=== PATIENT | female | born 2000 ===

== ENCOUNTER 2018-05-15 21:33 | Emergency (ER) | payer SELFPAY ==
[2018-05-15 21:55] VITALS: BP 128/84; O2SAT 99; BMI 29.9
[2018-05-15] MEDS ORDERED: Sodium Chloride 0.9% 1,000 ML IV STA (22:13)
[2018-05-15 22:43] LABS: BASO # 0.03 K/mm3 (0.0-2.0); BASO % 0.5 % (0.0-3.0); EOS % 0.4 % (1.5-5.0); GRAN # 3.43 (1.4-6.5); GRAN % 60.3 % (50.0-68.0); HEMOGLOBIN 11.1 g/dL (12.0-16.0); LYMPH # 1.7 (1.2-3.4); LYMPH % 30.3 % (22.0-35.0); MEAN CELL VOLUME 76.2 fl (80.0-105.0); MEAN CORPUSCULAR HEMOGLOBIN 25.9 pg (25.0-35.0); MEAN PLATELET VOLUME 9.5 fl (7.0-11.0); MONO # 0.5 (0.1-0.6); MONO % 8.5 % (1.0-6.0); PH,URINE 6.5 (4.7-8.0); RBC 4.28 10^6/uL (3.5-6.1); RED CELL DISTRIBUTION WIDTH 17.3 % (11.5-14.5); URINE BILIRUBIN NEGATIVE (NEGATIVE); URINE BLOOD NEGATIVE (NEGATIVE); URINE GLUCOSE (UA) NEGATIVE (NEGATIVE); URINE LEUKOCYTE ESTERASE NEGATIVE Leu/uL (NEGATIVE); URINE PROTEIN TRACE mg/dL (<30 mg/dL); WHITE BLOOD COUNT 5.7 10^3/ul (4.5-11.0)
[2018-05-15 22:44] LABS: URINE APPEARANCE CLEAR (CLEAR); URINE COLOR YELLOW (YELLOW)
[2018-05-15 22:46] LABS: URINE RBC 0 - 2 /hpf (0-2); URINE WBC 0 - 2 /hpf (0-6)
[2018-05-15 23:00] LABS: ALB/GLOB RATIO 1.3 (1.1-1.8); ALBUMIN 4.5 g/dL (3.0-4.8); ALT/SGPT 18 U/L (7-56); AST/SGOT 22 U/L (14-36); BLOOD UREA NITROGEN 8 mg/dL (7-21); CALCIUM 9.7 mg/dL (8.4-10.5); GFR AFRICAN-AMERICAN > 60; GFR NON-AFRICAN AMERICAN > 60; LIPASE 111 U/L (23-300)
--- NOTE | 2018-05-16 00:59 | ED PDOC ---
Arrival/HPI - General Historian: Patient - History of Present Illness Time/Duration: Prior to Arrival Symptom Onset: Sudden Symptom Course: Improving Quality: Cramping Severity Level: 2 <Livia Roy - Last Filed: 05/16/18 01:44> <Freddie Harrington - Last Filed: 05/16/18 02:06> - General Chief Complaint: Abdominal Pain Time Seen by Provider: 05/15/18 21:58 - History of Present Illness Narrative History of Present Illness (Text): 05/16/18 01:26 17-year-old female presents today with abdominal cramping that started 15 minutes prior to arrival. Patient also had 2 episodes of vomiting. Patient states the nausea and vomiting has resolved. Patient states she still having lower abdominal cramping. No medications have been taken for pain at home. Patient denies fevers or chills. Patient denies urinary symptoms. Patient denies vaginal bleeding or vaginal discharge. Patient states she just found out that she was . Patient states she has had one in the past and had a miscarriage. Patient denies dizziness or weakness. Denies back pain. No other complaints (Livia Roy) Past Medical History - Provider Review Nursing Documentation Reviewed: Yes - Travel History Have you recently traveled outside [place] w/in the past 3 mons?: No - Infectious Disease Hx of Infectious Diseases: None - Reproductive Menopause: No - Psychiatric Hx Substance Use: No - Anesthesia Hx Anesthesia: No Hx Anesthesia Reactions: No Hx Malignant Hyperthermia: No <Livia Roy - Last Filed: 05/16/18 01:44> Family/Social History - Physician Review Nursing Documentation Reviewed: Yes Family/Social History: Unknown Family HX Smoking Status: Never Smoked Hx Alcohol Use: No Hx Substance Use: No <Livia Roy - Last Filed: 05/16/18 01:44> Allergies/Home Meds <Livia Roy - Last Filed: 05/16/18 01:44> <Freddie Harrington - Last Filed: 05/16/18 02:06> Allergies/Adverse Reactions: Allergies No Known Allergies Allergy (Verified 05/15/18 22:11) Review of Systems - Review of Systems Constitutional: absent: Fatigue, Fevers Respiratory: absent: SOB, Cough Cardiovascular: absent: Chest Pain, Palpitations Gastrointestinal: Abdominal Pain, Nausea, Vomiting. absent: Constipation, Diarrhea Genitourinary Female: absent: Dysuria, Frequency, Hematuria, Vaginal Bleeding, Vaginal Discharge Musculoskeletal: absent: Arthralgias, Back Pain, Neck Pain Skin: absent: Rash, Pruritis Neurological: absent: Headache, Dizziness Psychiatric: absent: Anxiety, Depression <Livia Roy - Last Filed: 05/16/18 01:44> Physical Exam Vital Signs Reviewed: Yes Temperature: Afebrile Blood Pressure: Normal Pulse: Regular Respiratory Rate: Normal Appearance: Positive for: Well-Appearing, Non-Toxic, Comfortable Pain Distress: None Mental Status: Positive for: Alert and Oriented X 3 - Systems Exam Head: Present: Atraumatic Mouth: Present: Moist Mucous Membranes Neck: Present: Normal Range of Motion Respiratory/Chest: Present: Clear to Auscultation, Good Air Exchange. No: Respiratory Distress, Accessory Muscle Use Cardiovascular: Present: Regular Rate and Rhythm, Normal S1, S2. No: Murmurs Abdomen: Present: Tenderness (minimal lower abdominal tenderness), Normal Bowel Sounds. No: Distention, Peritoneal Signs, Rebound, Guarding Genitourinary/Pelvic Exam: Present: Normal External Genitalia, Vaginal Discharge (slight white vaginal discharge), Adenexal Mass (minimal right sided adnexal tenderness), Other (chaparoned by Padmini ching). No: Vaginal Bleeding, Vaginal Lesions, Adenexal Tenderness, Cervical Motion Tendernes, Odor Back: Present: Normal Inspection. No: CVA Tenderness, Midline Tenderness, Paraspinal Tenderness Upper Extremity: Present: Normal ROM Lower Extremity: Present: Normal ROM Neurological: Present: GCS=15, Speech Normal Skin: Present: Warm, Dry, Normal Color. No: Rashes Psychiatric: Present: Alert, Oriented x 3 <Livia Roy - Last Filed: 05/16/18 01:44> Vital Signs Temp Pulse Resp BP Pulse Ox 05/16/18 01:49 97.8 F 78 16 128/84 99 05/15/18 21:47 98.6 F 70 20 128/84 99 Medical Decision Making Reassessment Condition: Re-examined, Improved <Livia Roy - Last Filed: 05/16/18 01:44> <Freddie Harrington - Last Filed: 05/16/18 02:06> ED Course and Treatment: Patient is nontoxic well appearing in no distress. Patient complaining of lower abdominal pain that started 15 minutes prior to arrival with 2 episodes of vomiting. Patient without vaginal bleeding. Tylenol given by mouth test is positive CBC: Within normal limits CMP: Within normal limits Beta [id number],813 TYPE AND SCREEN: Urinalysis: Positive ketones Ultrasound:FINDINGS: Gestation: There is a intrauterine gestational sac with thick live. Yolk sac is visible. A developing fetus is present CRL 1.3 cm 7 weeks 4 days gestational age. Heart rate 156 bpm. There is hypoechoic subchorionic hemorrhage adjacent to the gestational sac 1.7 cm x 1.1 cm x 1.3 cm Uterus/cervix: Unremarkable. No myometrial mass. The uterus measures 12.8 cm x 5.5 cm x 0.2 cm. Ovaries: No mass. Normal blood flow bilaterally. RIGHT ovary measures 4.9 cm x 1.7 cm x 4.6 cm. Simple cyst 1.9 cm x 1 cm x 1.2 cm The LEFT ovary measures 4.3 cm x 3.8 cm x 2.3 cm. Free fluid: No free fluid. IMPRESSION: 1. Single living intrauterine . 2. Gestational age 7 weeks 4 days 3. Simple cyst RIGHT ovary 4. Small Subchorionic hemorrhage 5. Negative LEFT ovary. 05/16/18 00:52 Patient reassessment: Patient is feeling better after medication. Vital signs are stable. Patient is requesting food, states she is hungry. Patient with a slight white vaginal discharge will send gonorrhea and Chlamydia cultures advised patient to follow-up with [facility] chlamydia culture results in 3 days. Discussed all the results the patient. advised f/u with the child care centre director within the next 2 days. advised immediate return if symptoms worsen,persist or if new symptoms develop. Patient verbalizes understanding of discharge instructions and need for immediate followup. all aspects of this case were discussed the attending of record. Impression: threatened , subchorionic hemorrhage, right ovarian cyst Tylenol every 4 hours as needed for pain Increase fluids Followup with the sap ppm consultant within the next 2 days Return immediately if symptoms worsen persist or if new symptoms develop: High fevers, heavy bleeding, severe abdominal pain, vomiting, diarrhea, dizziness or weakness or any other concerning symptoms develop. Continue vitamins daily (Livia Roy) - Lab Interpretations Lab Results: 05/15/18 22:39 05/15/18 22:39 Lab Results 05/15/18 22:39: Beta HCG, Quant [id number] H 05/15/18 22:39: Sodium 137, Potassium 3.6, Chloride 104, Carbon Dioxide 17 L, Anion Gap 20, BUN 8, Creatinine 0.4 L, Est GFR ( Amer) > 60, Est GFR (Non -Af Amer) > 60, Random Glucose 105, Calcium 9.7, Total Bilirubin 0.3, AST 22, ALT 18, Alkaline Phosphatase 51, Total Protein 7.8, Albumin 4.5, Globulin 3.4, Albumin/Globulin Ratio 1.3, Lipase 111 05/15/18 22:39: Urine Color Yellow, Urine Appearance Clear, Urine pH 6.5, Ur Specific [place] 1.020, Urine Protein Trace H, Urine Glucose (UA) Negative, Urine Ketones 40 H, Urine Blood Negative, Urine Nitrate Negative, Urine Bilirubin Negative, Urine Urobilinogen 1.0 H, Ur Leukocyte Esterase Negative, Urine RBC 0 - 2, Urine WBC 0 - 2, Ur Epithelial Cells 3 - 4 05/15/18 22:39: WBC 5.7, RBC 4.28, Hgb 11.1 L, Hct 32.6 L, MCV 76.2 L, MCH 25.9 , MCHC 34.0, RDW 17.3 H, Plt Count 241, MPV 9.5, Gran % 60.3, Lymph % (Auto) 30.3, Turner % (Auto) 8.5 H, Eos % (Auto) 0.4 L, Baso % (Auto) 0.5, Gran # 3.43, Lymph # (Auto) 1.7, Turner # (Auto) 0.5, Eos # (Auto) 0.0, Baso # (Auto) 0.03 05/15/18 22:00: Blood Type O POSITIVE, Antibody Screen Negative, BBK History Checked No verified bt - RAD Interpretation Radiology Orders: 05/15/18 22:12 OB TRANSVAGINAL [US] Stat - Medication Orders Current Medication Orders: Discontinued Medications Acetaminophen (Tylenol 325mg Tab) 975 mg PO STAT STA Stop: 05/15/18 22:46 Last Admin: 05/15/18 23:24 Dose: 975 mg MAR Pain/Vitals Document 05/15/18 23:24 LA (Rec: 05/15/18 23:24 LA [id number] Pain Reassessment Is This A Pain ReAssessment? Yes Sleep Is patient sleeping during reassessment? No Presence of Pain Presence of Pain Yes Pain Scale Used Pain Scale Used Numeric Location Pain Location Body Site Abdomen Intensity 5 Sodium Chloride (Sodium Chloride 0.9%) 1,000 mls @ 999 mls/hr IV .Q1H1M STA Stop: 05/15/18 23:13 Last Admin: 05/15/18 22:30 Dose: 999 mls/hr eMAR Start Stop Document 05/15/18 22:30 GMD (Rec: 05/15/18 22:31 GMD [id number]) Intravenous Solution Start Date 05/15/18 Start Time 22:30 End Date 05/15/18 End time 23:31 Total Infusion Time 61 - PA / GRIEF COUNSELOR / Resident Statement / has reviewed & agrees with the documentation as recorded. <Freddie Harrington - Last Filed: 05/16/18 02:06> Disposition/Present on Arrival - Present on Arrival Any Indicators Present on Arrival: No History of DVT/PE: No History of Uncontrolled Diabetes: No Urinary Catheter: No History of Decub. Ulcer: No History Surgical Site Infection Following: None - Disposition Have Diagnosis and Disposition been Completed?: Yes Disposition Time: 00:55 Patient Plan: Discharge <Livia Roy - Last Filed: 05/16/18 01:44> <Freddie Harrington - Last Filed: 05/16/18 02:06> - Disposition Diagnosis: Threatened , Subchorionic hemorrhage, Abdominal pain affecting , Ovarian cyst Disposition: HOME/ ROUTINE Patient Problems: Current Active Problems Problem Status Onset Abdominal pain affecting Acute Ovarian cyst Acute Subchorionic hemorrhage Acute Threatened Acute Condition: GOOD Discharge Instructions (ExitCare): Threatened Miscarriage, Ovarian Cyst (DC), Threatened Miscarriage (DC) Additional Instructions: Tylenol every 4 hours as needed for pain Increase fluids Followup with the sap ppm consultant within the next 2 days Return immediately if symptoms worsen persist or if new symptoms develop: High fevers, heavy bleeding, severe abdominal pain, vomiting, diarrhea, dizziness or weakness or any other concerning symptoms develop. Continue vitamins daily Prescriptions: Multivit/Folic Acid/I [ Plus] 1 tab PO DAILY #30 tab [facility] - Follow up with primary Concha Davila MD [Staff Provider] - Follow up with primary Forms: [employer] (Hungarian), WORK NOTE
[2018-05-16 01:51] VITALS: PULSE 78; RESP 16; TEMP 97.8
--- NOTE | 2018-05-16 10:20 | US ---
PROCEDURE: First trimester ultrasound HISTORY: Abdominal pain and . COMPARISON: None available. TECHNIQUE: Standard protocol for this study/examination. FINDINGS: LMP: 03/23/2018 Prior examinations from the current : None TECHNIQUE: Real-time 2D imaging, duplex and color Doppler. FINDINGS: Cardiac activity: Present Rate: 157 BPM Measurements: [place] rump length: 1.34 cm Gestational age based on CRL 7 weeks 4 days Gestational age 7 weeks 3 days based on gestational sac measurement 2.65 cm Gestational age derived from LMP: 7 weeks 4 days ROBERT based on LMP: 12/28/2018 ROBERT based on biometry: 12/28/2018 Gestational concordance documented Yolk sac identified Uterus: Unremarkable. Cervix: No Cervical abnormalities: Negative examination for cervical dilatation or effacement. Closed cervix measuring 3.70 cm Subchorionic hemorrhage: Present, 1.4 x 1.2 x 1.7 cm UTERUS: 5.2 x 8.2 x 12.8 cm. ADNEXA: Right: 1.8 x 5 x 4.7 cm. Simple cyst 1 x 1.2 cm Normal Doppler arterial waveform documented. Left: 2.3 x 3.8 x 4.3 cm. Normal Doppler arterial waveform documented Fluid in the cul-de-sac: None IMPRESSION: Seven weeks 4 days live intrauterine gestation. Gestational concordance documented. Small subchorionic hemorrhage. Concordant results (preliminary interpretation) provided by [employer]. Procedure Completed: 23:41 Preliminary ([employer]) Report: Dictated and Authenticated: 00:32 Final Interpretation: 10:18 May 16, 2018.
== END 2018-05-16 02:16 | disposition home or self-care (01) ==
LOC: EDBD 21:33 → ED 21:33
DX: O20.0 Threatened abortion (principal); O34.81 Maternal care for other abnormalities of pelvic organs, first trimester; N83.291 Other ovarian cyst, right side; R10.9 Unspecified abdominal pain; Z3A.01 Less than 8 weeks gestation of pregnancy
CPT/HCPCS: 76817; 80053; 81001; 83690; 84702; 85025; 86850; 86900; 87086; 87491; 87591; 96360; 99283; J7030